=== PATIENT | male | born 2000 | race Two or more races ===

== ENCOUNTER 2024-05-06 23:30 | Emergency (ER) | payer BC, OTHER ==
[~2024-05-06] VITALS: Ht 177.8 cm; Wt 87.6 kg
[2024-05-07] MEDS: ALBUTEROL SULF 2.5 MG/0.5ML(0.5%) NEB SOLN NEB ONE (02:10)
[2024-05-07 02:15] VITALS: BP 121/68; PULSE 68; RESP 16; TEMP 98.5; O2SAT 98
== END 2024-05-07 02:26 | disposition home or self-care (01) ==
LOC: EEVIPCON 23:30 → ER 23:30
DX: F07.81 Postconcussional syndrome (principal)
CPT/HCPCS: 70450; 94640